=== PATIENT | female | born 1960 | race Caucasian/White ===

== ENCOUNTER 2017-01-21 17:36 | Observation (INO) ==
[2017-01-21] MEDS ORDERED: *HR* LORazepam 2 MG/ML VIAL ONE (17:41)
[2017-01-21] MEDS ORDERED: *HR* LORazepam 2 MG/ML VIAL IVP ONE (17:50)
--- NOTE | 2017-01-21 17:55 | Emergency Department Note ---
Disposition Clinical Impression: Acute anxiety Disposition: Still a Patient Condition: Good Referrals: NO,PCP [Primary Care Provider] - Forms: ED Satisfaction Letter Time of Disposition: 19:00 General Adult HPI - General Chief complaint: ED Psychiatric Symptoms Stated complaint: Anxiety Time Seen by Provider: 01/21/17 17:44 Source: patient Limitations: no limitations Nursing Notes Reviewed: Yes Vital Signs Reviewed: Yes - History of Present Illness HPI Narrative: Female PT presesnting to the ED with her . Pt hyperventilaitng complaining of shortness of breath and increased anxiety after getting into an argument with her children. Pt tried to take a half of her Xanax with no relief. Pain Scale: 0 - Related Data Home Medications Medication Instructions Recorded Confirmed Abilify 02/22/16 [place] 5-325 mg 02/22/16 Protonix 02/22/16 Xanax 02/22/16 Previous Rx's Medication Instructions Recorded Naproxen [Naprosyn] 250 mg PO BID #20 tablet 08/14/15 LORazepam [Ativan] 1 mg PO ONCE #11 tablet 12/21/15 HydrOXYzine Pamoate 50 mg PO TID 7 Days 02/22/16 Hydrocortisone 1% CREAM [Cortaid] 28 gm TP TID #1 bottle 02/22/16 Alprazolam [Xanax 0.5 MG Tablet] 0.5 mg PO BID PRN #10 tablet 07/04/16 Hydrocortisone [Cortizone 10] 28 gm TP BID PRN #1 unit 07/04/16 Allergies Allergy/AdvReac Type Severity Reaction Status Date / Time topiramate [From Topamax] Allergy See Verified 07/04/16 13:32 Comments acetaminophen AdvReac Nausea Verified 07/04/16 13:32 [From Darvocet-N] aspirin [ASA] AdvReac Nausea Verified 07/04/16 13:32 propoxyphene AdvReac Nausea Verified 07/04/16 13:32 [From Darvocet-N] All systems ED: reviewed and negative except as stated. Constitutional: Denies: fever, chills ENT ED: Denies: congestion Cardiovascular: Reports: chest pain. Denies: palpitations, edema, syncope Respiratory: Reports: dyspnea. Denies: cough, wheezes Gastrointestinal: Denies: abdominal pain, nausea, vomiting, diarrhea Genitourinary: Denies: dysuria, frequency, hematuria Musculoskeletal: Denies: back pain, neck pain Past Medical History - Past Medical History Medical history: Reports: GERD, other Surgical history: Reports: cholecystectomy, hysterectomy Psychiatric history: Reports: anxiety - Social History Smoking Status: Former smoker Smokeless Tobacco Status: No Alcohol use: Reports: unknown Drug use: Reports: marijuana Physical Exam - General Limitations: no limitations General appearance: alert, in no apparent distress, anxious (extremely) - Head Head exam: atraumatic, normocephalic - Eye Eye exam: Present: normal appearance, PERRL, EOMI - ENT ENT exam: normal exam, normal oropharynx, mucous membranes moist - Neck Neck exam: Present: normal inspection, full ROM, trachea midline - Chest Chest inspection: Present: normal inspection, symmetric chest wall rise. Absent : tenderness, rash - Respiratory Respiratory exam: Present: normal lung sounds bilaterally, other (tachypnea) - Cardiovascular Cardiovascular exam: Present: normal rhythm, tachycardia, normal heart sounds - Abdominal Exam Abdominal exam: Present: soft, Non-Tender, normal bowel sounds. Absent: tenderness, distention, organomegaly - Extremities Exam Extremities exam: Present: normal inspection, full ROM, normal capillary refill. Absent: tenderness, pedal edema - Back Exam Back exam: Present: normal inspection, full ROM. Absent: tenderness - Neurological Exam Neurological exam: Present: alert, oriented X3 - Psychiatric Psychiatric exam: Present: normal affect, normal mood - Skin Skin exam: Present: warm, dry, intact, normal color. Absent: rash, cyanosis Course Course Narrative: Female Pt presesenting to the ED with her in respiratory distress. She is hyperventilating and speaking about her children being upset with her. We attempetd to career counselor Pt on breathing slower with no relief. Pt complaining of getting into an argument with her children and then getting very upset. She took a half of one of her Xanax with no relief. She is complaining of shortness of breath and chest pain that began right after her argument. An IV was established and Pt was given 1 mg of Ativan. THis calmed Pt. We will get a cardiac workup on Pt. He Shortness of breath was eased after the ativan administration. She was then able to speak in full sentences and was requesting ice chips. Sign out will be given to the furnace worker. Vital Signs Temperature 100.4 F H 01/21/17 17:39 Pulse Rate 130 01/21/17 17:39 Respiratory Rate 18 01/21/17 17:39 Blood Pressure 159/98 01/21/17 17:39 O2 Sat by Pulse Oximetry 96 01/21/17 17:39 Temperature 100.4 F H 01/21/17 17:39 Pulse Rate 82 01/21/17 19:39 Respiratory Rate 20 01/21/17 19:39 Blood Pressure 111/79 01/21/17 19:39 O2 Sat by Pulse Oximetry 98 01/21/17 19:39 Oxygen Delivery Oxygen Delivery Room Air Medical Decision Making - MDM Narrative Medical decision making narrative: I examined this patient and my medical decision-making was reviewed with the UPPER STITCHER/PA/Advanced Practice Nurse/Resident Physician. I agree with the documented findings, disposition and treatment plan as described except to the extent set forth below. Patient presents today with anxiety attack after arguing with her family. She was seen by Dr. Leiva and myself, I agree with her evaluation management plan, supervise care the patient's stay. Received Ativan doing better not homicidal or suicidal here. She denies any drug ingestions. She is getting EKGs and a workup done here and then reassessment. Patient's initial EKG done at 1747 hrs. shows a sinus tachycardia, rate is 119, QRS is 85, QTC is 399, no signs of acute ischemia, compared with an EKG she had done in 2016 shows no acute changes except for rate. She had a lot of artifact in movement because she was anxious to repeat the EKG 13 minutes later at 1800 hrs. shows sinus rhythm, rate is 91, QRS is 93, EDC is 43 no signs of ischemia. Patient's doing better after Ativan denies any chest pain or shortness of breath this is time. Chest X-Ray 01/21/17 17:45 IMPRESSION: Bibasilar atelectasis or infiltrate. D/ / Yannick Royal MD / Yannick Royal MD Interpreting Provider: Yannick Royal MD - Lab Data Result diagrams: 01/21/17 18:03 01/21/17 18:03 Lab Results 01/21/17 01/21/17 01/21/17 Range/Units 18:03 18:03 18:03 WBC 8.3 (4.3-11.1) K/mcL RBC 4.69 (3.82-4.97) M/mcL Hgb 13.7 (11.5-15.4) g/dL Hct 41.7 (35.3-44.9) % MCV 88.9 (83.0-100.0) fL MCH 29.2 (28.0-33.3) pg MCHC 32.9 (31.6-35.5) g/dL RDW 13.0 (11.5-14.5) % Plt Count 188 (140-400) K/mcL MPV 12.2 (9.4-12.4) fL Immature Gran % 0.1 (0-4) % Seg Neutrophils % 53.8 % Lymphocytes % 40.2 % Monocytes % 4.9 % Eosinophils % 0.5 % Basophils % 0.5 % Neutrophils # 4.5 (1.6-8.9) K/mcL Lymphocytes # 3.3 (0.6-4.6) K/mcL Monocytes # 0.4 (0.0-1.3) K/mcL Eosinophils # 0.0 (0.0-0.6) K/mcL Basophils # 0.0 (0.0-0.2) K/mcL Sodium 144 (136-145) mEq/L Potassium 3.6 (3.5-4.5) mEq/L Chloride 109 (98-109) mEq/L Carbon Dioxide 21 (19-29) mEq/L BUN 12 (7-20) mg/dL Creatinine 1.21 H (0.57-1.11) mg/dL Est GFR ( Amer) 56 L (> 60) Est GFR (Non-Af Amer) 46 L (> 60) BUN/Creatinine Ratio 10 (6-26) Glucose 129 H (70-99) mg/dL Calculated Osmolality 299 (280-300) Calcium 9.8 (8.6-10.8) mg/dL Troponin I 0.01 (0-0.03) ng/mL Urine Color (Yellow) Urine Clarity (Clear) Urine pH (5.0-8.0) pH Units Ur Specific [place] (1.010-1.025) Urine Protein (Neg-Trace) mg/dL Urine Glucose (UA) (Normal) mg/dL Urine Ketones (Negative) mg/dL Urine Blood (Negative) Urine Nitrite (Negative) Urine Bilirubin (Negative) Urine Urobilinogen (Normal) mg/dL Ur Leukocyte Esterase (Negative) Urine Microscopic RBC (0-3) per hpf Urine Microscopic WBC (0-3) per hpf Ur Squamous Epith Cells (None-Few) per lpf Urine Bacteria (None-Few) per hpf Hyaline Casts (None-Few) per lpf Urine Mucus (Few) Ur Culture Indicated? (NO) Urine Opiates Screen (Ifsqfx=102) ng/mL Ur Barbiturates Screen (Ypszyk=730) ng/mL Ur Phencyclidine Scrn (Cutoff=25) ng/mL Ur Amphetamines Screen (Qdmuvr=9854) ng/mL U Benzodiazepines Scrn (Lzbpno=472) ng/mL Urine Cocaine Screen (Cutoff= 300) ng/mL U Marijuana (THC) Screen (Cutoff = 50) ng/mL 01/21/17 01/21/17 Range/Units 18:55 18:55 WBC (4.3-11.1) K/mcL RBC (3.82-4.97) M/mcL Hgb (11.5-15.4) g/dL Hct (35.3-44.9) % MCV (83.0-100.0) fL MCH (28.0-33.3) pg MCHC (31.6-35.5) g/dL RDW (11.5-14.5) % Plt Count (140-400) K/mcL MPV (9.4-12.4) fL Immature Gran % (0-4) % Seg Neutrophils % % Lymphocytes % % Monocytes % % Eosinophils % % Basophils % % Neutrophils # (1.6-8.9) K/mcL Lymphocytes # (0.6-4.6) K/mcL Monocytes # (0.0-1.3) K/mcL Eosinophils # (0.0-0.6) K/mcL Basophils # (0.0-0.2) K/mcL Sodium (136-145) mEq/L Potassium (3.5-4.5) mEq/L Chloride (98-109) mEq/L Carbon Dioxide (19-29) mEq/L BUN (7-20) mg/dL Creatinine (0.57-1.11) mg/dL Est GFR ( Amer) (> 60) Est GFR (Non-Af Amer) (> 60) BUN/Creatinine Ratio (6-26) Glucose (70-99) mg/dL Calculated Osmolality (280-300) Calcium (8.6-10.8) mg/dL Troponin I (0-0.03) ng/mL Urine Color Yellow (Yellow) Urine Clarity Cloudy A (Clear) Urine pH 5.5 (5.0-8.0) pH Units Ur Specific [place] 1.030 H (1.010-1.025) Urine Protein 100 H (Neg-Trace) mg/dL Urine Glucose (UA) Normal (Normal) mg/dL Urine Ketones Trace H (Negative) mg/dL Urine Blood Negative (Negative) Urine Nitrite Negative (Negative) Urine Bilirubin Small H (Negative) Urine Urobilinogen Normal (Normal) mg/dL Ur Leukocyte Esterase Negative (Negative) Urine Microscopic RBC 3-5 H (0-3) per hpf Urine Microscopic WBC 5-15 H (0-3) per hpf Ur Squamous Epith Cells Many H (None-Few) per lpf Urine Bacteria Few (None-Few) per hpf Hyaline Casts Moderate H (None-Few) per lpf Urine Mucus Few (Few) Ur Culture Indicated? YES A (NO) Urine Opiates Screen Negative (Jrunlv=870) ng/mL Ur Barbiturates Screen Negative (Jbfvlx=031) ng/mL Ur Phencyclidine Scrn Negative (Cutoff=25) ng/mL Ur Amphetamines Screen Negative (Bnfjjx=9311) ng/mL U Benzodiazepines Scrn Positive H (Ruwtmg=213) ng/mL Urine Cocaine Screen Negative (Cutoff= 300) ng/mL U Marijuana (THC) Screen Positive H (Cutoff = 50) ng/mL S.B.A.R. - S.B.A.R. Background: Presenting Complaint (SOB, chest pain, hyperventilation. Anxiety after an argument with her children. ) Assessment: Course and respsone to treatment (all labs pending. Pt recieved 1 mg Ativan and this eased her work of breathing) Recommendation: Recommendation based on pending studies, treatments, or consults (likely discharge pending Pt mental status, and labs and continued denial of SI and HI) S.B.A.R. Report Given to: Asher Rangel Repor Time: 07:00
[2017-01-21 18:13] LABS: Basophils % 0.5 %; Eosinophils % 0.5 %; Hematocrit 41.7 % (35.3-44.9); Hemoglobin 13.7 g/dL (11.5-15.4); Immature Granulocytes % 0.1 % (0-4); Lymphocytes # 3.3 K/mcL (0.6-4.6); Lymphocytes % 40.2 %; Mean Corpuscular HGB Conc 32.9 g/dL (31.6-35.5); Mean Corpuscular Hemoglobin 29.2 pg (28.0-33.3); Mean Corpuscular Volume 88.9 fL (83.0-100.0); Mean Platelet Volume 12.2 fL (9.4-12.4); Monocytes # 0.4 K/mcL (0.0-1.3); Monocytes % 4.9 %; Neutrophils # 4.5 K/mcL (1.6-8.9); Platelet Count 188 K/mcL (140-400); Red Blood Count 4.69 M/mcL (3.82-4.97); Segmented Neutrophils % 53.8 %
[2017-01-21 18:27] LABS: Calcium 9.8 mg/dL (8.6-10.8); Potassium 3.6 mEq/L (3.5-4.5)
[2017-01-21 19:06] LABS: Bilirubin,Urine Small (Negative); Blood,Urine Negative (Negative); Clarity,Urine Cloudy (Clear); Color,Urine Yellow (Yellow); Glucose,Urine (UA) Normal (Normal); Ketones,Urine Trace mg/dL (Negative); Leukocyte Esterase,Urine Negative (Negative); Nitrite,Urine Negative (Negative); PH,Urine 5.5 pH Units (5.0-8.0); Protein,Urine 100 mg/dL (Neg-Trace); Urobilinogen,Urine Normal (Normal)
[2017-01-21 19:09] LABS: Amphetamine Screen,Urine Negative ng/mL (Cutoff=1000); Barbiturate Screen,Urine Negative ng/mL (Cutoff=200); Benzodiazepines Screen,Urine Positive ng/mL (Cutoff=200); Cannabinoid Screen,Urine Positive ng/mL (Cutoff = 50); Cocaine Screen,Urine Negative ng/mL (Cutoff= 300); Opiate Screen,Urine Negative ng/mL (Cutoff=300); Phencyclidine Screen,Urine Negative ng/mL (Cutoff=25)
[2017-01-21 19:11] LABS: Hyaline Casts,Urine Moderate per lpf (None-Few); Squamous Epithelial Cell,Urine Many per lpf (None-Few)
[2017-01-21 19:21] LABS: Bacteria,Urine Few per hpf (None-Few); Mucus,Urine Few (Few)
[2017-01-21] MEDS ORDERED: *HR* LORazepam 1 MG TABLET PO ONE (19:41)
[2017-01-21] MEDS ORDERED: Aspirin 81 MG TAB.CHEW PO ONE (20:45)
[2017-01-21] MEDS ORDERED: Ondansetron 4 MG/2 ML VIAL IVP ONE (21:00)
[2017-01-21] MEDS ORDERED: Ondansetron 4 MG/2 ML VIAL IVP PRN (21:12)
[2017-01-21] MEDS ORDERED: Naloxone 0.4 MG/ML INJ IVP PRN (21:12)
[2017-01-21] MEDS ORDERED: 0.9 % Sodium Chloride w KCl 20 MEQ/1,000 ML MLS IVC SCH (21:15)
--- NOTE | 2017-01-21 21:15 | Internal Med History&Physical ---
Date of Encounter: 01/21/17 Time of Encounter: 21:15 Assessment and Plan (1) Chest pain Current visit: Yes Status: Acute Patient with no personal history of CAD but with significant risk factors as well as significant family history of CAD comes in with chest pain concerning for ACS, her symptoms also mirror a panic attack considering her anxiety history but it will be reasonable to r/o ACS, we will admit for r/o in AM, will also check A1c and lipid profile, NPO post midnight except for medications Qualifiers: Chest pain type: precordial pain Qualified Code(s): R07.2 - Precordial pain (2) TERRELL (acute kidney injury) Current visit: Yes Status: Acute Her baseline creatinine is normal based on her creatinine from 06/2016 that was 0.89, she now comes in with a creatinine of 1.21, etiology could be pre-renal vs renal vs post renal, we will hydrate for now, avoid nephrotoxins, renally dose all medications and follow BMP, (3) Acute anxiety Current visit: Yes Status: Acute She has had a lot of stressors lately which could account for her symptoms, we will give ativan PRN, 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 Mckay is a 56 year old female with a history of anxiety not on a controlling medication and HTN managed via diet and lifestyle who comes in with chest pain. She was in her usual state of health until she was brought to the ER today by her for chest pain. The pain began after she got into an argument with her daughter about the grandchildren. The pain was located in the retrosternal area, radiated to her left neck area with tingling and numbness in the fingers of her left hand. The pain was 8/10 in severity and patient complained of associated shortness of breath, diaphoresis, feeling of apprehension, lightheadedness but o nausea or vomiting. She reports that she has been having similar pain symptoms for the past 3-4 days, but today was the worst. In the ER she was reported a hyperventilating. Patient denies any previous such presentation but had a cardiac cath in for which no intervention was performed. 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-could not be found on CT head of this current admission Endometriosis Hysterectomy Cholecystectomy SOCIAL HISTORY She is and lives with her , she sued to smoke about 1-2 ppd for 35-40 years but quit about 2 years ago, she denies illicit drug use FAMILY HISTORY Mother had an HI in her 40s and had a CABG in her 50s to 60s, mother also had a stroke, father of emphysema and was a heavy smoker, elder sister had an HI in her 50s, her little sister has Graves disease, her son has thyroid problems, Past Med Surg Social Fam HX - Past Medical History Medical history: GERD, other Psychiatric history: anxiety - Past Surgical History Surgical History: cholecystectomy, hysterectomy - Social History Smoking Status: Former smoker Smokeless Tobacco Status: No Alcohol use: unknown Drug use: marijuana - Family History Mother Hx Family Cardiac Disorders: Yes Hx Family Respiratory Disorders: Yes Hx Family Endocrine Disorder: Yes Internal Medicine - H&P: Meds No Known Home Drugs 01/21/17 [History] Allergies topiramate [From Topamax] Allergy (Verified 07/04/16 13:32) See Comments acetaminophen [From Darvocet-N] Adverse Reaction (Verified 07/04/16 13:32) Nausea aspirin [ASA] Adverse Reaction (Verified 07/04/16 13:32) Nausea propoxyphene [From Darvocet-N] Adverse Reaction (Verified 07/04/16 13:32) Nausea All Systems PM: A 10-system review of systems was performed and is negative for pertinent findings except as documented above in the HPI. - Constitutional Vitals: Temp Pulse Resp BP Pulse Ox 100.4 F H 82 20 111/79 98 01/21/17 17:39 01/21/17 19:39 01/21/17 19:39 01/21/17 19:39 01/21/17 19:39 PHYSICAL EXAMINATION: GENERAL: Adult female, lying in bed looking uncomfortable, Alert, makes good eye contact HEENT: NC/AT, EOMI, PERRLA, anicteric sclera, normal conjunctiva, supple, clear nares, moist mucous membranes, clear oropharynx, central uvula RESP: no chest wall tenderness with palpation, lungs are clear to auscultation bilaterally, good AE bilaterally, No crackles or wheeze CARDIO: Normal hearts sounds; S1 and 2, RRR with no murmurs, no JVD, no ankle edema GI: Soft, full, no tenderness, no organomegaly felt, normal bowel sounds heard MUSCULOSKELETAL: grossly normal movements bilaterally, no deformities noted, no calf tenderness EXTREMITIES: No clubbing, cyanosis or edema, NEUROLOGIC: CN 2-12 intact grossly. No motor/sensory deficit appreciated, PSYCHIATRY: AAO x 3. Mood is fair, exhibits appropriate judgement SKIN: no skin rash or ulcers noted Internal Med - H&P Results - Labs CBC & Chem 7: 01/21/17 18:03 01/21/17 18:03 Labs: Short CBC 01/21/17 Range/Units 18:03 WBC 8.3 (4.3-11.1) K/mcL Hgb 13.7 (11.5-15.4) g/dL Hct 41.7 (35.3-44.9) % Plt Count 188 (140-400) K/mcL Neutrophils # 4.5 (1.6-8.9) K/mcL BMP 01/21/17 18:03 Sodium 144 Potassium 3.6 Chloride 109 Carbon Dioxide 21 BUN 12 Creatinine 1.21 H Glucose 129 H Calcium 9.8 Cardiac Enzymes 01/21/17 Range/Units 18:03 Troponin I 0.01 (0-0.03) ng/mL Urine 01/21/17 Range/Units 18:55 Urine Color Yellow (Yellow) Urine Clarity Cloudy A (Clear) Urine pH 5.5 (5.0-8.0) pH Units Ur Specific [place] 1.030 H (1.010-1.025) Urine Protein 100 H (Neg-Trace) mg/dL Urine Glucose (UA) Normal (Normal) mg/dL - EKG Data -: EKG Interpreted by Myself EKG shows normal: sinus rhythm - EKG Data Prior EKG available for review: yes When compared to previous EKG: there is no significant change - Impressions ITS Impressions Chest X-Ray 01/21/17 17:45 IMPRESSION: Bibasilar atelectasis or infiltrate. D/ / Yannick Royal MD / Yannick Royal MD Interpreting Provider: Yannick Royal MD Head CT 01/21/17 19:42 IMPRESSION: 1. No acute intracranial abnormality. 2. Nonvisualization of the previously identified 3rd ventricle colloid cyst. D/ / Kev Aguilar MD / Kev Aguilar MD Interpreting Provider: Kev Aguilar MD - Diagnostic Studies Chest x-ray Status: image reviewed by me CT scan - head Status: image reviewed by me
[2017-01-21] MEDS ORDERED: Aspirin 81 MG TAB.CHEW ONE (21:18)
[2017-01-22 01:40] LABS: Hemoglobin A1C 5.3 %
[2017-01-22 01:44] LABS: BUN/Creatinine Ratio 14 (6-26); Blood Urea Nitrogen 14 mg/dL (7-20); Calcium 8.9 mg/dL (8.6-10.8); Carbon Dioxide 24 mEq/L (19-29); Chloride 109 mEq/L (98-109); Cholesterol 174 mg/dL (< 200); Glucose 101 mg/dL (70-99); HDL Cholesterol 35 mg/dL (40-59); LDL Cholesterol,Calculated 120 mg/dL (0-99); Magnesium 2.2 mg/dL (1.6-2.6); Osmolality,Calculated 289 (280-300); Phosphorous 3.7 mg/dL (2.3-4.7); Potassium 3.8 mEq/L (3.5-4.5); Sodium 139 mEq/L (136-145); Triglycerides 93 mg/dL (< 150); eGFR For African Americans > 60 (> 60); eGFR For Non-African Americans 58 (> 60)
[2017-01-22 02:02] LABS: Thyroid Stimulating Hormone 2.302 mcIU/mL (0.350-4.840)
--- NOTE | 2017-01-22 03:17 | Emergency Department Note ---
Disposition Clinical Impression: Acute anxiety, Chest pain, rule out acute myocardial infarction Disposition: Admitted As Inpatient Condition: Good Time of Disposition: 21:22 General Adult HPI - General Chief complaint: ED Psychiatric Symptoms Stated complaint: Anxiety Time Seen by Provider: 01/21/17 17:44 Source: patient Limitations: no limitations - History of Present Illness Pain Scale: 4 - Related Data Home Medications Medication Instructions Recorded Confirmed No Known Home Drugs 01/21/17 01/21/17 Allergies Allergy/AdvReac Type Severity Reaction Status Date / Time topiramate [From Topamax] Allergy See Verified 07/04/16 13:32 Comments acetaminophen AdvReac Nausea Verified 07/04/16 13:32 [From Darvocet-N] aspirin [ASA] AdvReac Nausea Verified 07/04/16 13:32 propoxyphene AdvReac Nausea Verified 07/04/16 13:32 [From Darvocet-N] Constitutional: Denies: fever, chills ENT ED: Denies: congestion Cardiovascular: Reports: chest pain. Denies: palpitations, edema, syncope Respiratory: Reports: dyspnea. Denies: cough, wheezes Gastrointestinal: Denies: abdominal pain, nausea, vomiting, diarrhea Genitourinary: Denies: dysuria, frequency, hematuria Musculoskeletal: Denies: back pain, neck pain Past Medical History - Past Medical History Medical history: Reports: GERD, other Surgical history: Reports: cholecystectomy, hysterectomy Psychiatric history: Reports: anxiety - Social History Smoking Status: Former smoker Smokeless Tobacco Status: No Alcohol use: Reports: unknown Drug use: Reports: marijuana Physical Exam - General Limitations: no limitations General appearance: alert, in no apparent distress, anxious (extremely) Course Vital Signs Temperature 100.4 F H 01/21/17 17:39 Pulse Rate 130 01/21/17 17:39 Respiratory Rate 18 01/21/17 17:39 Blood Pressure 159/98 01/21/17 17:39 O2 Sat by Pulse Oximetry 96 01/21/17 17:39 Temperature 97.8 F 01/21/17 23:33 Pulse Rate 74 01/21/17 23:33 Respiratory Rate 15 01/21/17 23:33 Blood Pressure 102/64 01/21/17 23:33 O2 Sat by Pulse Oximetry 94 01/21/17 23:33 Oxygen Delivery Oxygen Delivery Room Air Medical Decision Making - [facility] Narrative Medical decision making narrative: James Bach, examined this patient and my medical decision-making was reviewed with the CIRCULATION CREW LEADER/PA/Advanced Practice Nurse/Resident Physician. I agree with the documented findings, disposition and treatment plan as described except to the extent set forth below. 56-year-old female received in sign out from Dr. Verma pending laboratory evaluation, imaging, reevaluation, and disposition. Patient given Ativan for her anxiety however her chest pain and neck pain did not improve. Patient has risk factors of tobacco use, family history of cardiac disease, hyperlipidemia. Last cardiac evaluation was greater than 10 years ago. Initial troponin was negative. EKG does not show evidence of STEMI. Patient will be admitted to the hospital for further care and evaluation of her anxiety as well as chest pain to rule out ACS. - Medical Records Medical records reviewed: Yes I reviewed the patient's medical records. - Lab Data Lab results reviewed: Yes I reviewed the patient's lab results. Result diagrams: 01/21/17 18:03 01/22/17 01:11 Lab Results 01/21/17 01/21/17 01/21/17 Range/Units 18:03 18:03 18:03 WBC 8.3 (4.3-11.1) K/mcL RBC 4.69 (3.82-4.97) M/mcL Hgb 13.7 (11.5-15.4) g/dL Hct 41.7 (35.3-44.9) % MCV 88.9 (83.0-100.0) fL MCH 29.2 (28.0-33.3) pg MCHC 32.9 (31.6-35.5) g/dL RDW 13.0 (11.5-14.5) % Plt Count 188 (140-400) K/mcL MPV 12.2 (9.4-12.4) fL Immature Gran % 0.1 (0-4) % Seg Neutrophils % 53.8 % Lymphocytes % 40.2 % Monocytes % 4.9 % Eosinophils % 0.5 % Basophils % 0.5 % Neutrophils # 4.5 (1.6-8.9) K/mcL Lymphocytes # 3.3 (0.6-4.6) K/mcL Monocytes # 0.4 (0.0-1.3) K/mcL Eosinophils # 0.0 (0.0-0.6) K/mcL Basophils # 0.0 (0.0-0.2) K/mcL Sodium 144 (136-145) mEq/L Potassium 3.6 (3.5-4.5) mEq/L Chloride 109 (98-109) mEq/L Carbon Dioxide 21 (19-29) mEq/L BUN 12 (7-20) mg/dL Creatinine 1.21 H (0.57-1.11) mg/dL Est GFR ( Amer) 56 L (> 60) Est GFR (Non-Af Amer) 46 L (> 60) BUN/Creatinine Ratio 10 (6-26) Glucose 129 H (70-99) mg/dL Calculated Osmolality 299 (280-300) Calcium 9.8 (8.6-10.8) mg/dL Troponin I 0.01 (0-0.03) ng/mL Urine Color (Yellow) Urine Clarity (Clear) Urine pH (5.0-8.0) pH Units Ur Specific Snyder (1.010-1.025) Urine Protein (Neg-Trace) mg/dL Urine Glucose (UA) (Normal) mg/dL Urine Ketones (Negative) mg/dL Urine Blood (Negative) Urine Nitrite (Negative) Urine Bilirubin (Negative) Urine Urobilinogen (Normal) mg/dL Ur Leukocyte Esterase (Negative) Urine Microscopic RBC (0-3) per hpf Urine Microscopic WBC (0-3) per hpf Ur Squamous Epith Cells (None-Few) per lpf Urine Bacteria (None-Few) per hpf Hyaline Casts (None-Few) per lpf Urine Mucus (Few) Ur Culture Indicated? (NO) Urine Opiates Screen (Qgjwgy=112) ng/mL Ur Barbiturates Screen (Cjaawr=400) ng/mL Ur Phencyclidine Scrn (Cutoff=25) ng/mL Ur Amphetamines Screen (Kllfgr=8205) ng/mL U Benzodiazepines Scrn (Fzfhrl=531) ng/mL Urine Cocaine Screen (Cutoff= 300) ng/mL U Marijuana (THC) Screen (Cutoff = 50) ng/mL 01/21/17 01/21/17 Range/Units 18:55 18:55 WBC (4.3-11.1) K/mcL RBC (3.82-4.97) M/mcL Hgb (11.5-15.4) g/dL Hct (35.3-44.9) % MCV (83.0-100.0) fL MCH (28.0-33.3) pg MCHC (31.6-35.5) g/dL RDW (11.5-14.5) % Plt Count (140-400) K/mcL MPV (9.4-12.4) fL Immature Gran % (0-4) % Seg Neutrophils % % Lymphocytes % % Monocytes % % Eosinophils % % Basophils % % Neutrophils # (1.6-8.9) K/mcL Lymphocytes # (0.6-4.6) K/mcL Monocytes # (0.0-1.3) K/mcL Eosinophils # (0.0-0.6) K/mcL Basophils # (0.0-0.2) K/mcL Sodium (136-145) mEq/L Potassium (3.5-4.5) mEq/L Chloride (98-109) mEq/L Carbon Dioxide (19-29) mEq/L BUN (7-20) mg/dL Creatinine (0.57-1.11) mg/dL Est GFR ( Amer) (> 60) Est GFR (Non-Af Amer) (> 60) BUN/Creatinine Ratio (6-26) Glucose (70-99) mg/dL Calculated Osmolality (280-300) Calcium (8.6-10.8) mg/dL Troponin I (0-0.03) ng/mL Urine Color Yellow (Yellow) Urine Clarity Cloudy A (Clear) Urine pH 5.5 (5.0-8.0) pH Units Ur Specific Snyder 1.030 H (1.010-1.025) Urine Protein 100 H (Neg-Trace) mg/dL Urine Glucose (UA) Normal (Normal) mg/dL Urine Ketones Trace H (Negative) mg/dL Urine Blood Negative (Negative) Urine Nitrite Negative (Negative) Urine Bilirubin Small H (Negative) Urine Urobilinogen Normal (Normal) mg/dL Ur Leukocyte Esterase Negative (Negative) Urine Microscopic RBC 3-5 H (0-3) per hpf Urine Microscopic WBC 5-15 H (0-3) per hpf Ur Squamous Epith Cells Many H (None-Few) per lpf Urine Bacteria Few (None-Few) per hpf Hyaline Casts Moderate H (None-Few) per lpf Urine Mucus Few (Few) Ur Culture Indicated? YES A (NO) Urine Opiates Screen Negative (Elfcbe=307) ng/mL Ur Barbiturates Screen Negative (Cnzbho=023) ng/mL Ur Phencyclidine Scrn Negative (Cutoff=25) ng/mL Ur Amphetamines Screen Negative (Hwbtfr=4447) ng/mL U Benzodiazepines Scrn Positive H (Cxqrzu=773) ng/mL Urine Cocaine Screen Negative (Cutoff= 300) ng/mL U Marijuana (THC) Screen Positive H (Cutoff = 50) ng/mL - Radiology Data Radiology results reviewed: Yes I reviewed the patient's radiology results.
[2017-01-22] MEDS: *HR* Heparin 5,000 UNIT/ML VIAL SQ SCH ×3 (06:11→22:55)
[2017-01-22] MEDS ORDERED: Regadenoson 0.4 MG/5 ML SYRINGE IVP ONE (07:39)
[2017-01-22] MEDS: *HR* LORazepam 0.5 MG TABLET PO PRN ×2 (11:39→18:04)
[2017-01-22 12:40] LABS: ABG Base Excess -0.7 mEq/L (-2.0 to 3.0); ABG HCO3 21.1 mEQ/L (21-27); ABG Oxygen Saturation 98 % (95-98); ABG PCO2 27 mmHg (35-45); ABG PO2 98 mmHg (85-104); ABG TCO2 21.9 mEq/L (20-26)
[2017-01-22 12:41] LABS: Blood Gas FiO2 21 %
[2017-01-22 12:55] LABS: BUN/Creatinine Ratio 13 (6-26); Blood Urea Nitrogen 10 mg/dL (7-20); Calcium 9.4 mg/dL (8.6-10.8); Carbon Dioxide 23 mEq/L (19-29); Chloride 110 mEq/L (98-109); Glucose 93 mg/dL (70-99); Magnesium 2.2 mg/dL (1.6-2.6); Osmolality,Calculated 293 (280-300); Potassium 3.9 mEq/L (3.5-4.5); Sodium 142 mEq/L (136-145); eGFR For African Americans > 60 (> 60); eGFR For Non-African Americans > 60 (> 60)
[2017-01-22] MEDS ORDERED: *HR* LORazepam 2 MG/ML VIAL IVP ONE (14:43)
--- NOTE | 2017-01-22 15:42 | Neurology - Consult Note ---
Date of Encounter: 01/22/17 Time of Encounter: 15:38 Assessment and Plan (1) Psychogenic nonepileptic seizure Current Visit: Yes Status: Acute I am convinced that this was a psychogenic nonepileptic seizure. Primarily due to the circumstances under which it occurred, is no postictal state, the EEG revealed no postictal slowing. There is no trauma to the tongue or the oral mucosa was no loss of urinary or fecal incontinence. She is currently back to her normal baseline and explains all of the different stressors involving her life at this point. I do feel that psychiatric intervention would be helpful. environmental services associate may be helpful in giving her advice about perhaps with ever legal actions that she may take. No further neurologic workup or intervention however is necessary at this juncture. I will reevaluate her at your request. The documentation in the history of HPI and plan were at least partially created by [employer] voice recognition technology by Dr. Morrison. Errors in grammar, wording or other phrases may exist. If errors are found after the documentation signed, they will be addressed individually in the addendum section of this document when appropriate. History of Present Illness HPI: Ms. Mckay is a 56 year old female who is being seen for neurologic consultation secondary to seizure-like activity. She has a prior history of these episodes some of which were thought to have been true seizures and others may be pseudoseizures. Apparently she has been under a tremendous amount of stress lately secondary to family matters. Unfortunately she has a history of a traumatic childhood as well. She is raising 2 of her grandchildren, and their mother who was her daughter has her own personal issues and all of this has created quite a stressful environment for Xochitl. She had an episode earlier today which resulted in a rapid response evaluation from the medical staff on the floor. The question of whether or not this may have been a seizure. Apparently she had tremulous activity and lost consciousness. She did not respond to sternal rub at the time. She did not however bite her tongue or lose bladder continence. No fecal incontinence. Currently she is awake and alert in bed. She is not postictal. She gave a very lucid history. I did review her EEG and it was normal. There is no postictal slowing identified on the study. Past Med Surg Social Fam HX - Past Medical History Medical history: GERD, other Psychiatric history: anxiety - Past Surgical History Surgical History: cholecystectomy, hysterectomy - Social History Smoking Status: Former smoker Smokeless Tobacco Status: No Alcohol use: unknown Drug use: marijuana - Family History Mother Hx Family Cardiac Disorders: Yes Hx Family Respiratory Disorders: Yes Hx Family Endocrine Disorder: Yes Medications and Allergies No Known Home Drugs 01/21/17 [History] Allergies topiramate [From Topamax] Allergy (Verified 07/04/16 13:32) See Comments acetaminophen [From Darvocet-N] Adverse Reaction (Verified 07/04/16 13:32) Nausea aspirin [ASA] Adverse Reaction (Verified 07/04/16 13:32) Nausea propoxyphene [From Darvocet-N] Adverse Reaction (Verified 07/04/16 13:32) Nausea All Systems: A 10-system review of systems was performed and is negative for pertinent findings except as documented above in the HPI. Review of Systems: 10 point review of systems is consistent history of present illness and otherwise negative. Physical Examination - Vital Signs Vital Signs: Initial Vital Signs Temp Pulse Resp BP Pulse Ox 100.4 F H 130 18 159/98 96 01/21/17 17:39 01/21/17 17:39 01/21/17 17:39 01/21/17 17:39 01/21/17 17:39 - Constitutional General appearance: other (Patient is very sullen and depressed. However she is alert and gives a lucid history.) - Neurologic Detailed motor examination: full strength in all major muscle groups Motor examination - right side: 5/5: deltoids, biceps, triceps, wrist flexion, wrist extension, letterpress setter, hip flexors, tibialis Anterior, quadriceps, toe extension (EHL), plantarflexion Motor examination - left side: 5/5: deltoids, biceps, triceps, wrist flexion, wrist extension, hip flexors, letterpress setter, quadriceps, tibialis Anterior, toe extension (EHL), plantarflexion Detailed sensory examination: intact Reflex and gait examination: other (No clonus or long tract signs are identifiable.) Mental Status Examination: awake, alert, oriented to person, oriented to place, oriented to time, follows commands appropriately, answers questions appropriately, no agnosia, no aphasia, no aproxia Cranial nerve examination: PERRL, EOMI, visual jenkins intact, corneal reflexes brisk symmetrically, sensory to face intact, mastication intact, no facial asymmetry is present, no dysarthria, hearing is intact symmetrically, soft palate elevates bilaterally upon phonation, gag reflex intact, flexes SCM and trapezius muscles symmetrically with full power, tongue protrudes midline, no atrophy or facial fasiculations present Cerebellar examination: no dysmetria, performs finger to nose and heel to correia symmetrically without ataxia, no gait ataxia, no truncal ataxia, no difficulty with rapid alternating movements Results - Laboratory Findings CBC and BMP: 01/21/17 18:03 01/22/17 12:33 Abnormal lab findings: Abnormal lab results ABG pH 7.50 pH Units (7.32-7.45) H 01/22/17 12:20 ABG pCO2 27 mmHg (35-45) L 01/22/17 12:20 Chloride 110 mEq/L (98-109) H 01/22/17 12:33 POC Glucose 101 (58-89) H 01/22/17 12:17 LDL Cholesterol, Calc 120 mg/dL (0-99) H 01/22/17 01:11 HDL Cholesterol 35 mg/dL (40-59) L 01/22/17 01:11 Cholesterol/HDL Ratio 5.0 (0-4.9) H 01/22/17 01:11 Urine Clarity Cloudy (Clear) A 01/21/17 18:55 Ur Specific Burden 1.030 (1.010-1.025) H 01/21/17 18:55 Urine Protein 100 mg/dL (Neg-Trace) H 01/21/17 18:55 Urine Ketones Trace mg/dL (Negative) H 01/21/17 18:55 Urine Bilirubin Small (Negative) H 01/21/17 18:55 Urine Microscopic RBC 3-5 per hpf (0-3) H 01/21/17 18:55 Urine Microscopic WBC 5-15 per hpf (0-3) H 01/21/17 18:55 Ur Squamous Epith Cells Many per lpf (None-Few) H 01/21/17 18:55 Hyaline Casts Moderate per lpf (None-Few) H 01/21/17 18:55 Ur Culture Indicated? YES (NO) A 01/21/17 18:55 U Benzodiazepines Scrn Positive ng/mL (Wfdyju=617) H 01/21/17 18:55 U Marijuana (THC) Screen Positive ng/mL (Cutoff = 50) H 01/21/17 18:55 Consult Discharge Plan - Plan Referrals: NO,PCP [Primary Care Provider] -
--- NOTE | 2017-01-22 16:05 | EEG/EMG/Oth Biometrics Report ---
EEG Procedure Report Date of procedure: 01/22/17 EEG Procedure: Routine EEG Procedure Note: This is a report of a 21 channel bipolar and referential montage EEG. The posterior dominant rhythm consists of mixed alpha and beta frequencies. This rhythm is not reactive to eye opening. Hyperventilation is not performed in the recording. Beta frequencies persist in all leads anteriorly in both hemispheres. The patient then moves into stage I, followed by stage II sleep is referenced by dropout of the posterior dominant rhythm and emergence of vertex activity, K complexes, and sleep spindles. Photic stimulation is performed and does not produce a driving response. The EKG strip reveals normal sinus rhythm at 66 beats per minute. Impressions: This EEG recording is within normal limits. No evidence of epileptiform activity identified during the study. Comment: A normal EEG does not preclude the diagnosis of seizure or epilepsy. If the clinical suspicion for seizure activity is high serial EEGs or perhaps a prolonged recording may increase the yield. Also beta frequencies are indeed recognize as a normal variant, however may also be reflective of a posterior metabolic conditions, anxiety, and medication effect particularly benzodiazepines and barbiturates. Please correlate clinically. The documentation in the history of HPI and plan were at least partially created by [employer] recognition technology by Dr. Morrison. Errors in grammar, wording or other phrases may exist. If errors are found after the documentation signed, they will be addressed individually in the addendum section of this document when appropriate.
--- NOTE | 2017-01-22 16:13 | Nuclear Medicine Stress Report ---
Regadenoson Nuclear Stress Name: Xochitl Mckay Date of Study: 01/22/2017 Date: 1960 Ht: 62.0 in Medical Record#: [id number] Age: 56 Wt: 160.0 lb Gender: Female Order #: [id number] Location: [facility] Room: [facility] Supervising Provider: Ifeoma Gill CNP Reading Physician: Dale Verdin MD, [facility] Ordering Physician: Kinsey Ramirez CNP Primary Care Physician: [place] Stress Technologist: Jeffrey Dixon CRT Insulation Cutter: Isra Denney Indications: Chest Pain Impression: No significant ECG changes with regadenoson. Gated LVEF > 70%. Perfusion imaging was negative for ischemia or infarct. Stress Test Summary: Stress Test Type: Pharmacologic Regadenoson 0.4mg/5ml given IV Baseline Information: Initial Heart Rate: 66 Blood Pressure: 126/84 Stress Information: Test Terminated Due to (primary): As per protocol Maximum Blood Pressure: 140/80 Maximum Heart Rate: 103 Percent Maximum Heart Rate Achieved: 63 Double Product: [id number] Symptoms: Chest pain Nuclear Summary: SPECT myocardial perfusion imaging using Tc99m Sestamibi given intravenously was performed at rest and following cardiac stress testing. The resting images were obtained following initial dose of 10.8 mCi. Following stress an additional dose of 33.2 mCi was given at peak exercise or 30 seconds post regadenoson infusion. Findings: Stress Note * Resting ECG demonstrated normal sinus rhythm. * No baseline arrhythmias were noted. * Patient had mild chest pain with regadenoson. This is a non-specific finding. * No arrhythmias were noted during stress. * No significant ECG changes with regadenoson. Hemodynamic responses * Normal hemodynamic responses to pharmacologic stress. Study Quality * Study quality is good. Gated EF > 70% * Gated LVEF > 70%. Left Ventricle * The left ventricle is not dilated. * Normal Segmental Perfusion in rest. * Normal segmental perfusion in stress. TID * No evidence of transient ischemic dilatation. Updated by Dale Verdin MD, [facility] on 01/22/2017 4:08:16 PM electronically signed on 01/22/2017 4:08:42 PM with status of Final
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
--- NOTE | 2017-01-22 16:54 | Electrocardiograph Report ---
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
--- NOTE | 2017-01-22 16:54 | Electrocardiograph Report ---
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
[2017-01-23] MEDS: *HR* LORazepam 0.5 MG TABLET PO PRN (04:54)
[2017-01-23] MEDS ORDERED: *HR* Morphine 2 MG/ML SYRINGE ONE (05:44)
[2017-01-23] MEDS: *HR* Morphine 2 MG/ML SYRINGE IVP PRN ×2 (05:58→09:15)
[2017-01-23] MEDS: *HR* Heparin 5,000 UNIT/ML VIAL SQ SCH (06:12)
[2017-01-23 11:44] VITALS: BP 152/96
--- NOTE | 2017-01-23 12:00 | Cardiology Consult Note ---
Date of Encounter: 01/23/17 Time of Encounter: 09:00 Assessment and Plan (1) Chest pain Current Visit: Yes Status: Acute Atypical chest pain symptoms that are reproducible on my exam. Stress test was negative for ischemia. TTE 2013- EF 65-70%. No significant valvular disease. Troponin negative. No further testing indicated at this time. Continue asa and add statin therapy. LDL 120. F/u in the out-pt setting with PCP. Cardiology as needed. Qualifiers: Chest pain type: unspecified Qualified Code(s): R07.9 - Chest pain, unspecified (2) Hyperlipidemia Current Visit: Yes Status: Acute Start statin therapy. Healthy diet and exercise. Qualifiers: Hyperlipidemia type: pure hypercholesterolemia Qualified Code(s): E78.00 - Pure hypercholesterolemia, unspecified; E78.0 - Pure hypercholesterolemia Discussion w patient/family: The assessment and plan as outlined above was discussed with the patient and/or family members who expressed understanding and agreement. All questions were answered. Thank you for involving us in the care of your patient. Please call with any questions. History of Present Illness Consult date: 01/23/17 Requesting physician: Carito Chavez Consult reason: Chest pain Chief complaint: Stress, chest pain History of present illness: Ms. Mckay is a 56 year old female who presented to the hospital d/t increased stress at home from family stress. She c/o feeling overwhelmed caring for her grandchildren and not getting along with her children. She states she did not initially present with chest pain. She was SOB and anxious. During her stay she c/o left sided chest discomfort radiating to her chest. Reports intermittent chest pain for several years. She cannot tell if it is worse. She feels like there is a concrete brick sitting on her chest. Stress increased her discomfort. Reports undergoing three heart caths in the past that were all normal. Last [facility] completed was in 2004 at [facility]. She has a history of recently diagnosed high triglycerides, previous tobacco use , and anxiety. Family history of mother with CVA and VA in her 30's. Past Med Surg Social Fam HX - Past Medical History Attestation: Yes The following information was validated with the patient. Medical history: GERD, other Psychiatric history: anxiety, depression - Past Surgical History Surgical History: cholecystectomy, hysterectomy - Social History Smoking Status: Former smoker Smokeless Tobacco Status: No Alcohol use: unknown Drug use: marijuana - Family History Mother Hx Family Cardiac Disorders: Yes Hx Family Respiratory Disorders: Yes Hx Family Endocrine Disorder: Yes Medications and Allergies No Known Home Drugs 01/21/17 [History] Allergies topiramate [From Topamax] Allergy (Verified 07/04/16 13:32) See Comments acetaminophen [From Darvocet-N] Adverse Reaction (Verified 07/04/16 13:32) Nausea aspirin [ASA] Adverse Reaction (Verified 07/04/16 13:32) Nausea propoxyphene [From Darvocet-N] Adverse Reaction (Verified 07/04/16 13:32) Nausea All Systems Review: A 10-system review of systems was performed and is negative for pertinent findings except as documented above in the HPI. Physical Examination Vital Signs, Last 4 Hours Temp Pulse Resp BP Pulse Ox 01/23/17 11:40 98.0 F 78 17 152/96 99 General: Conversant, No Apparent Distress, Other (Very tearful) HEENT: Atraumatic, Normocephaly, Mucus Membranes Moist Neck: No JVD, Normal carotid pulses Cardiac: Reg Rate and Rhythm, Normal S1 and S2, No Murmur Lungs: Normal Breath Sounds, No Wheeze, Rales, Rhonchi Neuro: Alert and responsive, No focal deficits noted Abdomen: Soft, Non-Tender Skin: No rashes noted on visualized skin Musculoskeletal: No Chest Wall Tenderness Extremities: No Clubbing, No Cyanosis, No Edema, Normal Pulses Results 01/21/17 18:03 01/22/17 12:33 Lab Results 01/22/17 01/23/17 01/23/17 12:33 06:20 06:57 D-Dimer 217 Sodium 142 Potassium 3.9 Chloride 110 H Carbon Dioxide 23 BUN 10 Creatinine 0.78 Glucose 93 Calcium 9.4 Magnesium 2.2 Troponin I 0.00 - EKG Interpretation EKG results cardiology: personally reviewed (Sr with no acute ST changes.) Consult Discharge Plan - Plan Referrals: [facility] [Provider Group] - 01/25/17 10:50 am (This appointment will be with Chery Aguilar. ) Alexis Tee MD [Partnered Physician] - 02/12/17 9:15 am (You will receive a new patient packet for this appointment. Please bring your Photo ID, Insurance card, and a list of medications. Please cancel this appointment 24 hours in advance if you are unable to make it. )
--- NOTE | 2017-01-23 14:00 | Discharge Summary ---
Date of Encounter: 01/23/17 Time of Encounter: 08:35 - Discharge Diagnosis (1) Acute anxiety Priority: Primary Status: Chronic Comments: Patient has long history of anxiety. She has been seen by counseling Center previously for the same. Patient seems better today and is more calm. She seems flat today. She seems easily distracted and does not want to discuss her role in helping herself. She does become tearful at times but is easily redirected. She started Effexor 25 mg by mouth twice a day today and will be sent home with a prescription for the same. Due to her labile and fluctuant emotions, I do not feel comfortable giving her full supply of Effexor. Given her enough for 2 weeks and instructed her to follow up with her counselor or primary care physician for refill. Her aware that she may not see a change for 14+ days. He has a follow-up appointment at the [facility] in 2 days. (2) Chest pain Priority: Primary Status: Acute Comments: Patient was admitted with chest pain the emergency department 2 days ago. She has no personal history. Her risk factors include age, sex, smoking, lifestyle. Stress test was negative. EKG was negative for any ischemic changes. Troponins were negative. Stress test showed gated LVEF greater than 70% and perfusion imaging was negative for ischemia or infarct. She continued to have chest pain today. She said that it was different from the chest pain that she had on admission. Today she said it was a dull ache with radiation straight through to her back. I did have cardiology come see her today and they have determined she needs no further testing signed off. They recommend following up with her as needed. Patient is no longer a smoker she quit 2-1/2 years ago. She reports a bilateral fingers are tingly, which definitely could be related to her persistent hyperventilation and state of anxiety. Vital signs are stable. Qualifiers: Chest pain type: unspecified Qualified Code(s): R07.9 - Chest pain, unspecified (3) TERRELL (acute kidney injury) Priority: Secondary Status: Resolved (4) GERD (gastroesophageal reflux disease) Priority: Secondary Status: Chronic Comments: Chronic. Continue Prilosec 20 mg by mouth daily at home. Qualifiers: Esophagitis presence: without esophagitis Qualified Code(s): K21.9 - Gastro -esophageal reflux disease without esophagitis (5) Psychogenic nonepileptic seizure Priority: Secondary Status: Acute Comments: Patient has not exhibited any symptoms of this today. Again, today after discussing test results etc. patient said that she has had this in the past and no one will give her diagnosis. I did explain to her that this is a diagnosis. She said that she has a tumor in her head but no one is doing anything about. 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 She repeats that she wants to see a doctor at [facility] that explained everything very well to her. I told her that she is more than welcome to follow up outpatient with that person for care and verification of diagnosis. - Discharge Medications Prescriptions: Atorvastatin [Lipitor] 20 mg PO HS #30 tablet Omeprazole [PriLOSEC] 20 mg PO DAILY@0630 #30 capsule. Venlafaxine [Effexor] 25 mg PO BID #30 tablet Home Medications: Atorvastatin [Lipitor] 20 mg PO HS #30 tablet 01/23/17 [Rx] Omeprazole [PriLOSEC] 20 mg PO DAILY@0630 #30 capsule. 01/23/17 [Rx] Venlafaxine [Effexor] 25 mg PO BID #30 tablet 01/23/17 [Rx] Allergies/Adverse Reactions: Allergies topiramate [From Topamax] Allergy (Verified 07/04/16 13:32) See Comments acetaminophen [From Darvocet-N] Adverse Reaction (Verified 07/04/16 13:32) Nausea aspirin [ASA] Adverse Reaction (Verified 07/04/16 13:32) Nausea propoxyphene [From Darvocet-N] Adverse Reaction (Verified 07/04/16 13:32) Nausea Procedures/tests Complete & Pending: Procedures Performed prior 72 hours Category Date Time Status CT head/brain wo con [CT] Stat Cat Scan 01/22/17 12:31 Completed NM janet perf SPECT multi [NM] Routine Exams 01/21/17 21:51 Taken ECG 12 lead ECG [ECG] Routine Y 01/23/17 04:56 Completed SP pharm nuclear stress Routine Y 01/22/17 08:00 Completed Date of admission: 01/21/17 21:24 Primary care physician: PCP NO Consults: 01/22/17 10:56 Consult to Psychiatry [CONS] Routine Consulting Provider: [facility] Reason for Consult: Depression, anxiety, not suicidal, however, does state that she feels like she would be better off . No plan. Tearful, shaking, vomiting. If stress negative, would like to send home this afternoon pending your assessment, please. Formerly was pt at [facility], would like to return. Time Notified: 10:58 Call Completed: Yes 01/22/17 12:30 Consult to Neurology [CONS] Routine Consulting Provider: [facility] Reason for Consult: Seizure like activity Call Completed: Yes 01/22/17 15:12 Consult to Interpret Exam [CONS] Routine Consulting Provider: Dale Morrison Consult to Interpret Exam: Interpret EEG 01/23/17 07:41 Consult to Cardiology [CONS] Routine Comment: Consulting Provider: [facility] Reason for Consult: Chest pain radiating to L shoulder. Negative stress, negative trops, EKG NSR without ischemia. Family history of early [place] (mother) Time Notified: 07:42 Call Completed: Yes Discharging clinician: Carito Chavez Anticipated date of discharge: 01/23/17 - Patient Status Disposition: Home, Self-Care Functional capacity at discharge: independent ambulation Overall status at discharge: patient is progressing back to baseline - Discharge Instructions Follow Up With: Gabe Hyman [Provider Group] - 01/25/17 10:50 am (This appointment will be with Chery Aguilar. ) Alexis Tee MD [Partnered Physician] - 02/12/17 9:15 am (You will receive a new patient packet for this appointment. Please bring your Photo ID, Insurance card, and a list of medications. Please cancel this appointment 24 hours in advance if you are unable to make it. ) Additional Instructions: Follow up with counseling center on Saturday as scheduled. Take your Effexor as written. I have only given you enough for 2 weeks, you will need to follow up with your PCP or at counseling for a refill. Remember, it can take 14 or more days to notice an effect with the Effexor. Resume taking your other medications Avoid marijuana or other medications/illegal substances that are not prescribed to you. Follow up with your primary care physician for a follow up appointment in the next week to 10 days. - Diet and Activity Activity: increase activity as tolerated Diet: low fat, low cholesterol Hospital course: Ms. Mckay is a 56 year old female prior history of anxiety, hyperlipidemia, GERD. She presented to the emergency room with increased stress at home and chest pain. Patient was extremely histrionic and agitated yesterday during visit. She was dry heaving, clutching at her , tearful, lashing out at staff verbally, shaking, hyperventilating. She was a rapid response yesterday when she had what appeared to be a seizure. EEG was negative as well as head CT. She was seen by neurology not long after diagnosed with psychogenic nonepileptic seizure. She was seen by psychiatry, as well for depression and feelings of helplessness. She has been started on Effexor 25 mg by mouth twice a day and has a counseling appointment [facility] on Saturday. Stress test yesterday showed gated LVEF greater than 70% and perfusion imaging was negative for infarct or ischemia. She had continued chest pain today that appeared to be different than it was yesterday. She described as a dull ache, through to her left shoulder blade. She is no longer a smoker. She said that the pain sometimes radiating up her neck and down her left arm and that today her fingers were tingly and bilateral hands. She was seen by cardiology and it was determined that she does not need any intervention on their part and she may follow-up with them outpatient when necessary. Patient is very concerned about the tumor that is in her head. I discussed with better that she did not have a tumor, she had a colloid cyst, that is actually no longer visible on CAT scan. She was asking if the cyst could be causing her seizures. In that she would like to go to [facility] to see the physician who told her that that is a distinct possibility. I told her that she is more than welcome to follow up with that person on outpatient basis. Vital signs are stable. She will be discharged with prescription for statin, omeprazole, and Effexor. She will follow up with counseling on Saturday and she is also been directed towards a primary care physician. She expressed concern multiple times during her stay that she has not been able to find a primary care physician. Patient is stable and appropriate for discharge. - Time Spent with Patient Total time spent providing and/or coordinating discharge services: Less than 30 minutes - Constitutional Vitals: Temp Pulse Resp BP Pulse Ox 98.0 F 78 17 152/96 99 01/23/17 11:40 01/23/17 11:40 01/23/17 11:40 01/23/17 11:40 01/23/17 11:40 General appearance: Present: A&O X 3, pleasant, no acute distress, severe distress, answers questions appropriately - Head Head exam: Present: normal inspection - Eye Eye exam: Present: normal appearance, conjuntiva pink - ENT ENT exam: Present: mucous membranes moist, normal exam - Neck Neck exam general surgery: Present: normal inspection. Absent: lymphadenopathy , tenderness - Respiratory Respiratory exam: Present: CTAB. Absent: rales, respiratory distress, rhonchi, stridor, wheezes - Cardiovascular Cardiovascular exam: Present: RRR, +S1, +S2. Absent: diastolic murmur, systolic murmur - GI/Abdominal GI/Abdominal exam: Present: normal bowel sounds. Absent: distended, hepatomegaly, splenomegaly, tenderness - Extremities Exam Extremities exam: Present: normal capillary refill, warm, radial pulses palpable and symetrical. Absent: pedal edema, tenderness - Neurological Exam Neurological exam: Present: alert, oriented X3, no focal deficits, strengths equal and symetr throughout. Absent: facial droop, speech deficit - Psychiatric Psychiatric exam: Present: flat affect. Absent: homicidal ideation, suicidal ideation
[2017-01-23 14:09] LABS: Alanine Aminotransferase 29 Units/L (0-55); Aspartate Amino Transferase 29 Units/L (5-34)
--- NOTE | 2017-01-23 15:26 | Electrocardiograph Report ---
[place] [address] Test Date: 2017-01-23 Pat Name: Xochitl Mckay Department: 113 Room: 3B Gender: F Telephone Lineman: MARIBETH : 1960 Requested By: Kinsey Ramirez Order Number: [id number] Reading MD: Ele Prudy Measurements Intervals [place] Rate: 63 P: 58 DE: 139 QRS: 13 QRSD: 87 T: 32 QT: 435 QTc: 443 Interpretive Statements SINUS RHYTHM Electronically Signed On 01-23-2017 15:25:00 EDT by Ele Purdy
== END 2017-01-23 14:44 | disposition home or self-care (01) ==
LOC: 3BNU 17:36 → EMEROO 17:36 → 3BNU 22:27
PROVIDERS: ADMIT Internal Medicine; ATTEND Nurse Practitioner Family

== ENCOUNTER 2019-02-05 14:58 | Observation (INO) ==
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
--- NOTE | 2019-02-05 15:46 | Emergency Department Note ---
Disposition Clinical Impression: Continuous tremor, Syncope Disposition: Admitted As Inpatient Condition: Fair Referrals: Alexis Tee MD [Partnered Physician] - Forms: ED Satisfaction Letter Time of Disposition: 17:52 General Adult HPI - General Chief complaint: ED Neck Pain/Injury Stated complaint: tremors Time Seen by Provider: 02/05/19 14:59 Source: patient, EMS Limitations: no limitations - History of Present Illness Pain Scale: 5 - Related Data Previous Rx's Medication Instructions Recorded Atorvastatin [Lipitor] 20 mg PO HS #30 tablet 01/23/17 Omeprazole [PriLOSEC] 20 mg PO DAILY@0630 #30 capsule. 01/23/17 Venlafaxine [Effexor] 25 mg PO BID #30 tablet 01/23/17 HydrOXYzine Pamoate [Vistaril] 50 mg PO Q8H PRN #10 capsule 01/25/17 Allergies Allergy/AdvReac Type Severity Reaction Status Date / Time topiramate [From Topamax] Allergy See Verified 04/07/18 17:07 Comments acetaminophen AdvReac Nausea Verified 04/07/18 17:07 [From Darvocet-N] aspirin [ASA] AdvReac Nausea Verified 04/07/18 17:07 propoxyphene AdvReac Nausea Verified 04/07/18 17:07 [From Darvocet-N] Past Medical History - Past Medical History Medical history: Reports: GERD, other Surgical history: Reports: cholecystectomy, hysterectomy Psychiatric history: Reports: anxiety, depression - Social History Smoking Status: Current some day smoker Smokeless Tobacco Status: No Alcohol use: Reports: none Drug use: Reports: marijuana Physical Exam - General Limitations: no limitations General appearance: alert, in distress Course Vital Signs Temperature 98.3 F 02/05/19 15:02 Pulse Rate 93 02/05/19 15:02 Respiratory Rate 20 02/05/19 15:02 Blood Pressure 182/107 02/05/19 15:02 O2 Sat by Pulse Oximetry 99 02/05/19 15:02 Temperature 98.3 F 02/05/19 15:02 Pulse Rate 72 02/05/19 17:45 Respiratory Rate 14 02/05/19 17:45 Blood Pressure 150/101 02/05/19 17:45 O2 Sat by Pulse Oximetry 97 02/05/19 17:45 Oxygen Delivery Oxygen Delivery Room Air Medical Decision Making - Lab Data Result diagrams: 02/05/19 15:14 02/05/19 16:25 Lab Results 02/05/19 02/05/19 02/05/19 Range/Units 15:14 15:14 15:14 WBC 10.8 (4.3-11.1) K/mcL RBC 5.13 H (3.82-4.97) M/mcL Hgb 15.3 (11.5-15.4) g/dL Hct 46.7 H (35.3-44.9) % MCV 91.0 (83.0-100.0) fL MCH 29.8 (28.0-33.3) pg MCHC 32.8 (31.6-35.5) g/dL RDW 12.6 (11.5-14.5) % Plt Count 208 (140-400) K/mcL MPV 12.2 (9.4-12.4) fL Immature Gran % 0.2 (0-4) % Seg Neutrophils % 52.1 % Lymphocytes % 40.5 % Monocytes % 5.9 % Eosinophils % 0.7 % Basophils % 0.6 % Neutrophils # 5.6 (1.6-8.9) K/mcL Lymphocytes # 4.4 (0.6-4.6) K/mcL Monocytes # 0.6 (0.0-1.3) K/mcL Eosinophils # 0.1 (0.0-0.6) K/mcL Basophils # 0.1 (0.0-0.2) K/mcL Sodium (136-145) mEq/L Potassium (3.5-5.1) mEq/L Chloride (98-107) mEq/L Carbon Dioxide (23-29) mEq/L BUN (6-20) mg/dL Creatinine (0.60-1.20) mg/dL Est GFR ( Amer) (> 60) Est GFR (Non-Af Amer) (> 60) BUN/Creatinine Ratio (6-26) Glucose (70-105) mg/dL Calculated Osmolality (280-300) Calcium (8.6-10.3) mg/dL Magnesium (1.6-2.6) mg/dL Troponin I < 0.03 (< 0.04) ng/mL Specimen Rejected Hemolyzed 02/05/19 Range/Units 16:25 WBC (4.3-11.1) K/mcL RBC (3.82-4.97) M/mcL Hgb (11.5-15.4) g/dL Hct (35.3-44.9) % MCV (83.0-100.0) fL MCH (28.0-33.3) pg MCHC (31.6-35.5) g/dL RDW (11.5-14.5) % Plt Count (140-400) K/mcL MPV (9.4-12.4) fL Immature Gran % (0-4) % Seg Neutrophils % % Lymphocytes % % Monocytes % % Eosinophils % % Basophils % % Neutrophils # (1.6-8.9) K/mcL Lymphocytes # (0.6-4.6) K/mcL Monocytes # (0.0-1.3) K/mcL Eosinophils # (0.0-0.6) K/mcL Basophils # (0.0-0.2) K/mcL Sodium 141 (136-145) mEq/L Potassium 4.1 (3.5-5.1) mEq/L Chloride 108 H (98-107) mEq/L Carbon Dioxide 23 (23-29) mEq/L BUN 12 (6-20) mg/dL Creatinine 0.76 (0.60-1.20) mg/dL Est GFR ( Amer) > 60 (> 60) Est GFR (Non-Af Amer) > 60 (> 60) BUN/Creatinine Ratio 16 (6-26) Glucose 95 (70-105) mg/dL Calculated Osmolality 292 (280-300) Calcium 9.4 (8.6-10.3) mg/dL Magnesium 2.2 (1.6-2.6) mg/dL Troponin I (< 0.04) ng/mL Specimen Rejected Attestation Statement - Attestation Attestation: I, Brayden Maier DO, examined this patient [id number] and my medical decision-making was reviewed with Dr. Amy Negro , Resident Physician. I agree with the documented findings, disposition and treatment plan as described except to the extent set forth below. I personally supervised and was present for the sal/critical portions of the procedures completed by the resident documented below. Please see my progress notes for details. 58-year-old female presents emergency room for evaluation of generalized tremor s. Patient has an underlying psychiatric disease including anxiety. She said tremors and issues in the past. She does have some aspect of an intracranial mass that is been chronic but no acute changes were noted. Patient is denying any falls trauma or injury. Denies any headache or vision change. She does not have any nausea vomiting or diarrhea. She has not traveled outside the country or started any new medications. Patient said that yesterday she was under great deal of stress and was treated appropriately by some staff member at this facility. She is unable to give any names. On presentation here the patient speaking despite having full body tremors. She is answering questions appropriately and shows no acute signs of neurologic deficit or issue. Head is atraumatic. Pupils are equal and reactive. Extraocular muscles are intact. Oropharynx is patent. Trachea is midline. She has no stridor or trismus. Lungs are clear heart is regular. Abdomen is soft. Patient has inability to move all 4 of her extremities appropriately against gravity with normal strength. Pulses are intact in the radial DP and PT distributions bilaterally and symmetrically. Vital signs reviewed and are stable. Patient is otherwise describing multiple different issues at this time what appears to be a pseudoseizure. Patient did state she had a fall prior to coming in and the confirm this. Syncopal event is constituting the CT imaging here today. CT imaging the head and cervical spine will be collected along with EKG chest x-ray CBC chemistry electrolytes urinalysis at this time. Disposition pending full workup and treatment course. Patient is otherwise clinically stable. See detailed documentation the physical exam, medical intervention, medical decision-making disposition in the resident physician's note. No critical care applied the patient's treatment course this time. EKG is reviewed by myself in documented by the resident physician. 1700 Patient is otherwise stable. No signs of clinical decline here. CT imaging of the head and cervical spine are unremarkable. Chest x-ray is stable. Labs are completely unremarkable this time. Thyroid function as well as urinalysis and urine drug screen are still pending. Patient does have concern for admission secondary to syncopal event at home. She described loss of consciousness with return of normal mentation within several seconds to minutes. Patient is otherwise resting comfortably. Disposition will be admission wants a full workup treatment are established. Disposition will be determined 1735 Patient was discussed with the hospitalist Dr. kwan. Lengthy review about the syncopal event as well as the imaging modalities and workup have been discussed and reviewed. Patient will be admitted for monitoring at this time. No other acute findings noted during this treatment course. Patient will be monitored here in the emergency department until the admission process is completed. No other acute issues noted.
[2019-02-05 15:49] LABS: Basophils # 0.1 K/mcL (0.0-0.2); Basophils % 0.6 %; Eosinophils # 0.1 K/mcL (0.0-0.6); Eosinophils % 0.7 %; Hematocrit 46.7 % (35.3-44.9); Hemoglobin 15.3 g/dL (11.5-15.4); Immature Granulocytes % 0.2 % (0-4); Lymphocytes # 4.4 K/mcL (0.6-4.6); Lymphocytes % 40.5 %; Mean Corpuscular HGB Conc 32.8 g/dL (31.6-35.5); Mean Corpuscular Hemoglobin 29.8 pg (28.0-33.3); Mean Platelet Volume 12.2 fL (9.4-12.4); Monocytes # 0.6 K/mcL (0.0-1.3); Monocytes % 5.9 %; Neutrophils # 5.6 K/mcL (1.6-8.9); Platelet Count 208 K/mcL (140-400); Red Blood Count 5.13 M/mcL (3.82-4.97); Red Cell Distribution Width 12.6 % (11.5-14.5); Segmented Neutrophils % 52.1 %
[2019-02-05 16:55] LABS: BUN/Creatinine Ratio 16 (6-26); Blood Urea Nitrogen 12 mg/dL (6-20); Calcium 9.4 mg/dL (8.6-10.3); Carbon Dioxide 23 mEq/L (23-29); Chloride 108 mEq/L (98-107); Glucose 95 mg/dL (70-105); Magnesium 2.2 mg/dL (1.6-2.6); Osmolality,Calculated 292 (280-300); Potassium 4.1 mEq/L (3.5-5.1); Sodium 141 mEq/L (136-145); eGFR For Non-African Americans > 60 (> 60)
[2019-02-05 18:03] LABS: Thyroid Stimulating Hormone 4.245 mcIU/mL (0.340-5.600)
--- NOTE | 2019-02-05 18:33 | Internal Med History&Physical ---
Date of Encounter: 02/05/19 Time of Encounter: 18:33 Internal Medicine - H&P: HPI Chief complaint: syncopal event History of present illness: Ms. Mckay is a 58 year old female with past medical history of underlying psychiatric disease ) anxiety and also diagnosis of pseudoseizure who presented to the emergency room with generalized tremors and syncopal event at her [facility]. The patient have any described an episode was the patient completely lost consciousness . CT imaging of the head and cervical spine are unremarkable. Chest x-ray is stable. Labs are completely unremarkable this time. I spoke with neurology technical education teacher who recommended to admit the patient for observation overnight for sick syncopal event, and hold on further workup to the patient is evaluated by neurology giving her significant psychological history. The patient was very emotional at bedside start crying Was Started in about Her CODE STATUS. She wanted to be DNR which the family was not happy about liver she insist on DNR status. She was admitted for further evaluation and manageme nt Past Med Surg Social Fam HX - Past Medical History Medical history: GERD, other Additional medical history: pseudo seizures Psychiatric history: anxiety, depression - Past Surgical History Surgical History: cholecystectomy, hysterectomy - Social History Smoking Status: Current some day smoker Smokeless Tobacco Status: No Alcohol use: none Drug use: marijuana - Family History Mother Hx Family Cardiac Disorders: Yes Hx Family Respiratory Disorders: Yes Hx Family Endocrine Disorder: Yes Internal Medicine - H&P: Meds Omeprazole [PriLOSEC] 20 mg PO DAILY PRN 02/05/19 [History] Allergy/AdvReac Type Severity Reaction Status Date / Time topiramate [From Topamax] Allergy See Verified 04/07/18 17:07 Comments acetaminophen AdvReac Nausea Verified 04/07/18 17:07 [From Darvocet-N] aspirin [ASA] AdvReac Nausea Verified 04/07/18 17:07 propoxyphene AdvReac Nausea Verified 04/07/18 17:07 [From Darvocet-N] All Systems PM: A 10-system review of systems was performed and is negative for pertinent findings except as documented above in the HPI. - Constitutional Constitutional: no chills, no fever(s), no night sweats - EENT Eyes: no change in vision, no discharge, no pain, no photophobia Ears: no ear discharge, no ear pain, no tinnitus Nose, mouth and throat: no dysphagia, no nasal discharge, no neck pain, no sore throat - Cardiovascular Cardiovascular ROS IM: no chest pain, no diaphoresis, no dyspnea, no lightheadedness, no palpitations, no syncope - Respiratory Respiratory: no cough, no dyspnea, no wheezing, no excessive phlegm production - Gastrointestinal Gastrointestinal: no abdominal pain, no diarrhea, no hematemesis, no hematochezi a, no melena, no nausea, no vomiting - Genitourinary Genitourinary: no change in urinary stream, no dysuria, no flank pain, no hematuria - Musculoskeletal Musculoskeletal ROS IM: no numbness, no tingling - Integumentary Integumentary IM: no rash, no unusual bruising - Neurological Neurological ROS: no confusion, no convulsions, no focal weakness, no numbness, no tingling, no tremor(s) - Hematologic/Lymphatic Hematologic/Lymphatic: no easy bruising - Constitutional Vitals: Temp Pulse Resp BP Pulse Ox 98.3 F 72 14 150/101 97 02/05/19 15:02 02/05/19 17:45 02/05/19 17:45 02/05/19 17:45 02/05/19 17:45 Exam: As below - Head Head exam: Present: atraumatic, normocephalic - Eye Eye exam: Present: PERRL, conjuntiva pink, sclera anicteric Pupils: Present: PERRL - Neck Neck exam general surgery: Present: supple, trachea midline. Absent: lymphadenopathy - Respiratory Respiratory exam: Present: CTAB. Absent: accessory muscle use, rales, rhonchi, wheezes - Cardiovascular Cardiovascular exam: Present: RRR, +S1, +S2. Absent: diastolic murmur, gallop, rubs, systolic murmur - GI/Abdominal GI/Abdominal exam: Present: normal bowel sounds, soft, no peritoneal signs. Absent: distended, tenderness - Extremities Exam Extremities exam: Present: warm, radial pulses palpable and symmetrical. Absent: calf tenderness, cyanotic, pedal edema - Neurological Exam Neurological exam: Present: CN II-XII intact, oriented X3, no focal deficits. Absent: pronater drift, facial droop, speech deficit - Skin Skin exam: Present: dry, intact Internal Med - H&P Results - Labs CBC & Chem 7: 05/24/19 05:22 02/06/19 05:22 Labs: Short CBC 02/05/19 Range/Units 15:14 WBC 10.8 (4.3-11.1) K/mcL Hgb 15.3 (11.5-15.4) g/dL Hct 46.7 H (35.3-44.9) % Plt Count 208 (140-400) K/mcL Neutrophils # 5.6 (1.6-8.9) K/mcL BMP 02/05/19 16:25 Sodium 141 Potassium 4.1 Chloride 108 H Carbon Dioxide 23 BUN 12 Creatinine 0.76 Glucose 95 Calcium 9.4 Cardiac Enzymes 02/05/19 Range/Units 15:14 Troponin I < 0.03 (< 0.04) ng/mL - Impressions ITS Impressions Cervical Spine CT 02/05/19 15:12 IMPRESSION: No acute abnormality of the cervical spine. Straightened lordotic curvature, positional versus spasm. Multilevel degenerative disc disease. D/ / Jeb Salcedo MD / Jeb Salcedo MD Interpreting Provider: Jeb Salcedo MD Head CT 02/05/19 15:12 IMPRESSION: 1. No acute intracranial abnormality. 2. Stable hyperdense lesion involving the 3rd ventricle. This has been stable dating back to 08/04/2012 and is compatible with a colloid cyst. D/ / Jose Arredondo MD / Jsoe Arredondo MD Interpreting Provider: Jose Arredondo MD Chest X-Ray 02/05/19 15:13 IMPRESSION: 1. No acute radiographic abnormality in the chest. D/ / Donte Duarte MD / Donte Duarte MD Interpreting Provider: Donte Duarte MD - Assessment and Plan (1) Syncope Status: Acute Assessment and plan: SSESSMENT: Syncopal event, in the setting of significant psychiatric history, including severe anxiety and pseudoseizures Qualifiers: Syncope type: unspecified Qualified Code(s): R55 - Syncope and collapse (2) Hyperlipidemia Status: Acute Assessment and plan: The patient currently is not in any statin would obtain fasting blood profile Qualifiers: Hyperlipidemia type: pure hypercholesterolemia Qualified Code(s): E78.00 - Pure hypercholesterolemia, unspecified; E78.0 - Pure hypercholesterolemia (3) Acute anxiety Status: Chronic (4) GERD (gastroesophageal reflux disease) Status: Chronic Qualifiers: Esophagitis presence: without esophagitis Qualified Code(s): K21.9 - Gastro-esophageal reflux disease without esophagitis (5) Psychogenic nonepileptic seizure Status: Acute - Time Spent With Patient Total time spent is greater than 50% in coordination of care (as documented) at patient's floor/unit and/or counseling patient:
[2019-02-05] MEDS ORDERED: Naloxone 0.4 MG/ML INJ IVP PRN (18:43)
[2019-02-05] MEDS ORDERED: Ondansetron ODT 4 MG TAB.RAPDIS SL PRN (18:43)
[2019-02-05 19:16] LABS: Bilirubin,Urine Negative (Negative); Blood,Urine Negative (Negative); Clarity,Urine Clear (Clear); Color,Urine Yellow (Yellow); Glucose,Urine (UA) Normal (Normal); Ketones,Urine Negative (Negative); Leukocyte Esterase,Urine Negative (Negative); Nitrite,Urine Negative (Negative); Protein,Urine Negative (Neg-Trace); Specific Gravity,Urine 1.014 (1.010-1.025); Urobilinogen,Urine Normal (Normal)
[2019-02-05 19:43] LABS: Amphetamine Screen,Urine Negative ng/mL (Cutoff=1000); Barbiturate Screen,Urine Negative ng/mL (Cutoff=200); Benzodiazepines Screen,Urine Negative ng/mL (Cutoff=200); Cannabinoid Screen,Urine Positive ng/mL (Cutoff = 50); Cocaine Screen,Urine Negative ng/mL (Cutoff= 300); Opiate Screen,Urine Negative ng/mL (Cutoff=300); Phencyclidine Screen,Urine Negative ng/mL (Cutoff=25)
[2019-02-06] MEDS ORDERED: *HR* LORazepam 2 MG/ML VIAL IVP ONE (00:49)
[2019-02-06 06:24] LABS: Basophils # 0.1 K/mcL (0.0-0.2); Basophils % 0.9 %; Eosinophils # 0.2 K/mcL (0.0-0.6); Eosinophils % 3.3 %; Hematocrit 40.6 % (35.3-44.9); Immature Granulocytes % 0.2 % (0-4); Lymphocytes # 3.4 K/mcL (0.6-4.6); Lymphocytes % 58.1 %; Mean Corpuscular Volume 90.6 fL (83.0-100.0); Mean Platelet Volume 12.3 fL (9.4-12.4); Monocytes # 0.4 K/mcL (0.0-1.3); Neutrophils # 1.8 K/mcL (1.6-8.9); Platelet Count 166 K/mcL (140-400); Red Blood Count 4.48 M/mcL (3.82-4.97); Red Cell Distribution Width 12.8 % (11.5-14.5); Segmented Neutrophils % 31.5 %
[2019-02-06 06:44] LABS: Alanine Aminotransferase 15 Units/L (7-52); Albumin 4.1 g/dL (3.5-5.7); Albumin/Globulin Ratio 1.7 (1.1-2.2); Alkaline Phosphatase 61 Units/L (34-104); Aspartate Amino Transferase 17 Units/L (13-39); BUN/Creatinine Ratio 13 (6-26); Bilirubin,Total 0.4 mg/dL (0.3-1.0); Blood Urea Nitrogen 10 mg/dL (6-20); Calcium 9.2 mg/dL (8.6-10.3); Carbon Dioxide 27 mEq/L (23-29); Chloride 107 mEq/L (98-107); Chol/HDL Ratio 5.5 (0-4.9); Cholesterol 181 mg/dL (< 200); Globulin 2.4 g/dL (2.4-3.5); Glucose 105 mg/dL (70-105); HDL Cholesterol 33 mg/dL (40-59); LDL Cholesterol,Calculated 112 mg/dL (0-99); Magnesium 2.2 mg/dL (1.6-2.6); Osmolality,Calculated 293 (280-300); Phosphorous 3.3 mg/dL (2.7-4.5); Potassium 3.8 mEq/L (3.5-5.1); Sodium 142 mEq/L (136-145); Total Protein 6.5 g/dL (6.4-8.9); Triglycerides 182 mg/dL (< 150); eGFR For Non-African Americans > 60 (> 60)
[2019-02-06] MEDS ORDERED: tiZANidine 4 MG TABLET PO PRN (09:56)
--- NOTE | 2019-02-06 10:15 | Neurology - Consult Note ---
<James Emerson J - Last Filed: 02/06/19 12:43> Date of Encounter: 02/06/19 Time of Encounter: 10:01 Assessment and Plan (1) Syncope Status: Acute Neuro consulted for syncopal event Patient is reporting transient loss of consciousness yesterday Prodrome includes visual scotoma with bright flashing lights in left peripheral visual field prior to LOC She reports that she was walking and had a sudden drop attack with complete loss of consciousness and hit her head against her table leg Since syncopal event patient is complaining of tremors She appears to be very anxious on exam, has a history of nonepileptic seizures and anxiety It is unclear at this time if this was a true syncopal event; nevertheless we do recommend a full syncopal workup We will obtain an MRI of the brain and MRA of the neck, as well as Ortho vital signs Recommend psychiatric consultation Qualifiers: Syncope type: unspecified Qualified Code(s): R55 - Syncope and collapse (2) Psychogenic nonepileptic seizure Status: Acute Known nonepileptic seizures Denies any seizure-like activity at this time Recommend consultation to psychiatry No recommending AED's at this time; low suspicion for seizures (3) Continuous tremor Status: Acute psychogenic tremors h/o anxiety; patient is very anxious and tremulous but this is felt to be mostly anxiety driven c/s to psych recommended History of Present Illness Chief complaint: syncope and tremors HPI: Ms. 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 She presented to the ED with a chief complaint of syncope and tremors for which neurology has been consulted to assist with evaluating. The patient reports that yesterday evening she began to feel extremely anxious. She was sitting at the kitchen table and attempted to stand when she had a sudden drop attack and lost of consciousness resulting in hitting her head against the table leg. Loss of consciousness lasted for only a minute or 2. During the syncopal event she did not have any tremor or seizure like activity. She does however report whole body tremors beginning after regaining consciousness. She denies experiecing any chest pain, dyspnea, palpitations, headaches, dizziness, visual disturbances, dysphagia, dysarthria, unilateral weakness/parasthesias, tongue bite, urinary incontinence, or post ictal phase. Admits to scotoma with bright light in left peripheral visual field prior to syncopal event. On my exam today she appears very anxious and note that she has a h/o anxiety but is not currently taking anxiolytics. She does appear to have anxiety driven tremulous activity. The neurological exam is nonfocal and nonlateralizing.workup in the ED included CT head and CT C-spine which were both negative for any acute findings. Past Med Surg Social Fam HX - Past Medical History Medical history: CVA, GERD, other Additional medical history: Barett-Esophagus Psychiatric history: anxiety, depression - Past Surgical History Surgical History: cholecystectomy, hysterectomy - Social History Smoking Status: Current some day smoker Smokeless Tobacco Status: No Alcohol use: none Drug use: marijuana - Family History Mother Hx Family Cardiac Disorders: Yes Hx Family Respiratory Disorders: Yes Hx Family Endocrine Disorder: Yes Medications and Allergies Omeprazole [PriLOSEC] 20 mg PO DAILY PRN 02/05/19 [History] Allergy/AdvReac Type Severity Reaction Status Date / Time topiramate [From Topamax] Allergy See Verified 04/07/18 17:07 Comments acetaminophen AdvReac Nausea Verified 04/07/18 17:07 [From Darvocet-N] aspirin [ASA] AdvReac Nausea Verified 04/07/18 17:07 propoxyphene AdvReac Nausea Verified 04/07/18 17:07 [From Darvocet-N] All Systems: The remainder of the systems were reviewed and are negative Review of Systems: REVIEW OF SYSTEMS GENERAL: Negative for any nausea, vomiting, fevers, chills NEUROLOGIC: Negative for any blurry vision, blind spots, double vision, facial asymmetry, dysphagia, dysarthria, hemiparesis, hemisensory deficits, seizures, tingling, numbness, unilateral weakness or numbness/tingling POSITIVE- loss of consciousness, tremors CARDIOVASCULAR: Positive syncope PSYCH: Positive anxiety Physical Examination - Vital Signs Vital Signs: Initial Vital Signs Temp Pulse Resp BP Pulse Ox 98.3 F 93 20 182/107 99 02/05/19 15:02 02/05/19 15:02 02/05/19 15:02 02/05/19 15:02 02/05/19 15:02 - Exam Exam: Examination: General Examination: *CONSTITUTIONAL: Alert and oriented x3, no acute distress *GENERAL APPEARANCE OF PATIENT appears healthy and well groomed *EYES: pupils equal, round, reactive to light and accommodation, conjunctiva clear without masses or ulcerations, fundi normal. *CARDIOVASCULAR no peripheral edema, distal temperature normal, dorsalis pedis pulses normal. See vitals Musculoskeletal: *GAIT AND STATION deferred *ASSESSMENT OF MUSCLE STRENGTH IN THE UPPER AND LOWER EXTREMITIES bilateral deltoid, bicep, tricep, varnish filterer strength, hip flexors ,anterior tibialis, dorsoflexion of the foot 5/5 *MUSCLE TONE IN THE UPPER AND LOWER EXTREMITIES normal. No abnormal movements, fasciculations or atrophy identified. Neurological: *ORIENTATION to person, situation, time and place *RECURRENT AND REMOTE MEMORY intact *ATTENTION AND CONCENTRATION are normal *LANGUAGE FUNCTION no significant aphasia or dysarthia was noted. *FUND OF KNOWLEDGE aware of current events, past history, vocabulary *MENTAL attention span and concentration normal. *CN II optic fundi were normal, no papilledema noted. *CN III,IV, PERRLA extraocular eye movements were full, no nystagmus and no ptosis noted. *CN V shows normal sensation and jaw opens symmetrically. *CN VII shows normal facial movement symmetrically, upper and lower bilaterally. *CN VIII shows no significant hearing loss on exam *CN IX,,X palate elevated symmetrically *CN XI normal strength in the sternocleidomastoid muscles, symmetrical shoulder shrugging. *CN XII tongue protruded in the midline, with normal strength and movement. *SENSORY EXAMINATION light touch intact *REFLEXES: deep tendon reflexes were normal and symmetrical , grade 2/4 diffusely, no pathological reflexes were noted. *CEREBELLAR TESTING normal finger to nose, heel/knee/correia *PAIN LEVEL 0/10 Results - Laboratory Findings CBC and BMP: 02/06/19 05:22 02/06/19 05:22 Abnormal lab findings: Abnormal lab results RBC 5.13 M/mcL (3.82-4.97) H 02/05/19 15:14 Hct 46.7 % (35.3-44.9) H 02/05/19 15:14 Chloride 108 mEq/L (98-107) H 02/05/19 16:25 Triglycerides 182 mg/dL (< 150) H 02/06/19 05:22 LDL Cholesterol, Calc 112 mg/dL (0-99) H 02/06/19 05:22 VLDL Cholesterol, Calc 36 mg/dL (< 31) H 02/06/19 05:22 33 mg/dL (40-59) L 02/06/19 05:22 5.5 (0-4.9) H 02/06/19 05:22 U Marijuana (THC) Screen Positive ng/mL (Cutoff = 50) H 02/05/19 19:02 - Diagnostic Findings Additional findings: CT/CT head/brain wo con IMPRESSION: 1. No acute intracranial abnormality. 2. Stable hyperdense lesion involving the 3rd ventricle. This has been stable dating back to 08/04/2012 and is compatible with a colloid cyst. Consult Discharge Plan - Plan Referrals: Tavia Lee MD [Partnered Physician] - 04/07/19 10:40 am Alexis Tee MD [Primary Care Provider] - (Appointment has been requested.) <Ita Mcfarland I - Last Filed: 02/10/19 13:09> Date of Encounter: 02/06/19 Assessment and Plan (1) Psychogenic nonepileptic seizure Status: Acute (2) Continuous tremor Status: Acute I have personally performed a face to face diagnostic evaluation, including HPI, EXAM, which is included in the Assesment and plan, which was discussed with James Emerson CNP, I agree with the above outlined documentation. Ita Mcfarland MD. NeurologyI (3) Syncope Status: Acute I have personally performed a face to face diagnostic evaluation, including HPI, EXAM, which is included in the Assesment and plan, which was discussed with James Emerson CNP, I agree with the above outlined documentation. With multiple medical symptoms and complains Spell does not sound like a typical seizure No indication to start on any anticonvulsive medication Significant anxiety tremors perhaps panic attack, along with migrainous aura. Significant spasm of the muscles noted throughout the body We will get an MRI of the brain as well as MRA of the neck Would benefit from anxiolytic agent Ita Mcfarland MD. NeurologyI Qualifiers: Syncope type: unspecified Qualified Code(s): R55 - Syncope and collapse History of Present Illness HPI: Ms. Mckay is a 58 year old female All Systems: The remainder of the systems were reviewed and are negative Physical Examination - Vital Signs Vital Signs: Initial Vital Signs Temp Pulse Resp BP Pulse Ox 98.3 F 93 20 182/107 99 02/05/19 15:02 02/05/19 15:02 02/05/19 15:02 02/05/19 15:02 02/05/19 15:02 Results - Laboratory Findings CBC and BMP: 02/06/19 05:22 02/06/19 05:22 Abnormal lab findings: Abnormal lab results RBC 5.13 M/mcL (3.82-4.97) H 02/05/19 15:14 Hct 46.7 % (35.3-44.9) H 02/05/19 15:14 Chloride 108 mEq/L (98-107) H 02/05/19 16:25 Triglycerides 182 mg/dL (< 150) H 02/06/19 05:22 LDL Cholesterol, Calc 112 mg/dL (0-99) H 02/06/19 05:22 VLDL Cholesterol, Calc 36 mg/dL (< 31) H 02/06/19 05:22 33 mg/dL (40-59) L 02/06/19 05:22 5.5 (0-4.9) H 02/06/19 05:22 U Marijuana (THC) Screen Positive ng/mL (Cutoff = 50) H 02/05/19 19:02
[2019-02-06] MEDS ORDERED: *HR* LORazepam 0.5 MG TABLET PO ONE (10:37)
[2019-02-06 10:46] VITALS: BP 135/85
--- NOTE | 2019-02-06 13:32 | Discharge Summary ---
- NOTES TO OUTPATIENT PROVIDER Notes to Outpatient Provider: Follow up with PCP in one week. follow up with Psychiatrist as an out pt. Date of Encounter: 02/06/19 Time of Encounter: 13:30 - Discharge Diagnosis (1) Syncope Priority: Primary Status: Acute Qualifiers: Syncope type: unspecified Qualified Code(s): R55 - Syncope and collapse (2) Psychogenic nonepileptic seizure Priority: Primary Status: Acute (3) Acute anxiety Priority: Primary Status: Chronic (4) GERD (gastroesophageal reflux disease) Priority: Secondary Status: Chronic Qualifiers: Esophagitis presence: without esophagitis Qualified Code(s): K21.9 - Gastro-esophageal reflux disease without esophagitis (5) Hyperlipidemia Priority: Secondary Status: Acute Qualifiers: Hyperlipidemia type: pure hypercholesterolemia Qualified Code(s): E78.00 - Pure hypercholesterolemia, unspecified; E78.0 - Pure hypercholesterolemia Hospital course: Ms. Mckay is a 58 year old female with past medical history of underlying psychiatric disease ) anxiety and also diagnosis of pseudoseizure who presented to the emergency room with generalized tremors and syncopal event at her kitchen. The patient have any described an episode was the patient completely lost consciousness . CT imaging of the head and cervical spine are unremarkable. Chest x-ray is stable. Labs are completely unremarkable. 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 She does not have any more syncopal episodes. Patient was evaluated by a neurologist. She had a brain MRI and MRA done which came back is negative for ischemia/infarction. Her syncopal episode seems to be due to conversion / psychiatric disorder. Counseled her about this conversion disorder. Recommend to f/u with Psych as an out pt. - Time Spent with Patient Total time spent providing and/or coordinating discharge services: - Discharge Medications Prescriptions: New Cyclobenzaprine [Flexeril] 5 mg PO BID PRN #5 tablet PRN Reason: Spasms Continued Omeprazole [PriLOSEC] 20 mg PO DAILY PRN PRN Reason: GERD Home Medications: Omeprazole [PriLOSEC] 20 mg PO DAILY PRN 02/05/19 [History] Allergies/Adverse Reactions: Allergy/AdvReac Type Severity Reaction Status Date / Time topiramate [From Topamax] Allergy See Verified 04/07/18 17:07 Comments acetaminophen AdvReac Nausea Verified 04/07/18 17:07 [From Darvocet-N] aspirin [ASA] AdvReac Nausea Verified 04/07/18 17:07 propoxyphene AdvReac Nausea Verified 04/07/18 17:07 [From Darvocet-N] Date of admission: 02/05/19 19:26 Primary care physician: Alexis Tee MD Consults: 02/05/19 18:44 Consult to Physician [CONS] Routine Consulting Provider: Ita Mcfarland I Reason for Consult: Syncope Time Notified: 18:45 Call Completed: Yes - Constitutional Vitals: Temp Pulse Resp BP Pulse Ox 97.9 F 69 16 135/85 97 02/06/19 10:45 02/06/19 10:45 02/06/19 10:45 02/06/19 10:45 02/06/19 10:45 General appearance: Present: A&O X 3, no acute distress, answers questions a ppropriately Exam: Gen: Alert, awake, Oriented to time,place and person Chest: Diminished breath sounds B/L, No wheezing, No crackles, No rales Heart: S1S2+ RRR No murmurs Abd: Soft, NT, BS +, No organomegaly Ext: No edema, pulses are palpable, No calf tenderness Neuro : no focal neuro deficits noticed Skin: No rash. - Patient Status Disposition: Home, Self-Care Condition: Good - Discharge Instructions Follow Up With: Tavia Lee MD [Partnered Physician] - 04/07/19 10:40 am Alexis Tee MD [Primary Care Provider] - (Appointment has been requested.) Forms: Work/School Release - Diet and Activity Activity: increase activity as tolerated Diet: low salt diet
--- NOTE | 2019-02-06 17:24 | Electrocardiograph Report ---
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
== END 2019-02-06 14:00 | disposition left against medical advice (07) ==
LOC: EMEROOARM 14:58 → 3BNU 14:58 → SUATTDRO 19:26 → 3BNU 20:05
PROVIDERS: ADMIT Internal Medicine Nephrology; ATTEND Family Medicine